=== PATIENT | female | born 1990 | race Hispanic/Latino ===

== ENCOUNTER 2020-08-04 17:16 | Emergency (ER) | payer OTHER ==
[~2020-08-04] VITALS: Ht 154.9 cm; Wt 67.7 kg
--- NOTE | 2020-08-04 21:08 | ECGEPIP ---
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
[2020-08-04 21:43] LABS: BASO # 0.1 10^3/uL (0.0-0.2); BASO % 1.2 % (0.0-1.0); EOS # 0.2 10^3/uL (0.0-0.5); EOS % 2.7 % (0.0-3.0); HEMATOCRIT 41.7 % (36.0-47.0); HEMOGLOBIN 13.3 g/dl (12.0-15.5); LYMPH # 2.3 10^3/uL (1.5-5.0); MEAN CORPUSCULAR HEMOGLOBIN 28.8 pg (27.0-33.0); MEAN CORPUSCULAR HGB CONC 31.9 g/dl (32.0-36.5); MEAN CORPUSCULAR VOLUME 90.3 fl (80.0-96.0); MONO # 0.6 10^3/uL (0.0-0.8); MONO % 6.9 % (0.0-5.0); NEUTROPHILS # 5.2 10^3/uL (1.5-8.5); NEUTROPHILS % 61.7 % (36.0-66.0); PLATELET COUNT, AUTOMATED 362 10^3/uL (150-450); RED BLOOD COUNT 4.62 10^6/uL (4.00-5.40); WHITE BLOOD COUNT 8.5 10^3/uL (4.0-10.0)
[2020-08-04 21:56] LABS: INR 0.9; PROTHROMBIN TIME 12.3 SECONDS (12.5-14.3)
[2020-08-04 21:57] LABS: PARTIAL THROMBOPLASTIN TIME 26.9 SECONDS (24.2-38.5)
[2020-08-04 21:59] LABS: D-DIMER QUANT 530.62 ng/ml (<500)
[2020-08-04 22:10] LABS: HCG, SERUM QUALITATIVE NEGATIVE (NEGATIVE)
[2020-08-04] MEDS ORDERED: ISOVUE-370 76% 100ML VIAL As Ordered ONE (22:11)
[2020-08-04 22:13] LABS: ALBUMIN 3.9 GM/DL (3.2-5.2); ALT/SGPT 31 U/L (12-78); BILIRUBIN,TOTAL 0.2 MG/DL (0.2-1.0); BLOOD UREA NITROGEN 8 MG/DL (7-18); CALCIUM LEVEL 9.7 MG/DL (8.5-10.1); CARBON DIOXIDE LEVEL 29 MEQ/L (21-32); CHLORIDE LEVEL 105 MEQ/L (98-107); CK-MB VALUE MASS < 1.0 NG/ML (<3.6); CPK CREATINE PHOSPHOKINASE 60 U/L (26-192); CREATININE FOR GFR 0.75 MG/DL (0.55-1.30); FERRITIN 13 NG/ML (8-252); GLOMERULAR FILTRATION RATE > 60.0 (>60); GLUCOSE, FASTING 85 MG/DL (70-100); LDH LACTATE DEHYDROGENASE 185 U/L (84-246); MAGNESIUM LEVEL 2.1 MG/DL (1.8-2.4); MB/CK RELATIVE INDEX 1.67 (< OR =4); SODIUM LEVEL 139 MEQ/L (136-145); TOTAL PROTEIN 8.4 GM/DL (6.4-8.2); TROPONIN I < 0.02 NG/ML (< 0.10)
--- NOTE | 2020-08-04 22:55 | REPVR ---
PROCEDURE INFORMATION: Exam: CT Angiography Chest With Contrast Exam date and time: 08/04/2020 10:25 PM Age: 30 years old Clinical indication: Shortness of breath; Chest pain; Additional info: Chest pain/sob/previous covid TECHNIQUE: Imaging protocol: Computed tomographic angiography of the chest with contrast. 3D rendering (Not supervised by radiologist): MIP and/or 3D reconstructed images were created by the technologist. Radiation optimization: All CT scans at this facility use at least one of these dose optimization techniques: automated exposure control; mA and/or kV adjustment per patient size (includes targeted exams where dose is matched to clinical indication); or iterative reconstruction. Contrast material: ISOVUE 370; Contrast volume: 75 ml; Contrast route: INTRAVENOUS (IV); COMPARISON: No relevant prior studies available. FINDINGS: Pulmonary arteries: The main pulmonary artery measures 21 mm. No pulmonary embolism is identified. Aorta: The ascending thoracic aorta measures 21 mm. Lungs: Unremarkable. No consolidation. No masses. Pleural spaces: Unremarkable. No pneumothorax. No pleural effusion. Heart: Unremarkable. No cardiomegaly. No pericardial effusion. Mediastinal space: There is minimal soft tissue in the anterior mediastinum consistent with residual thymic tissue. Lymph nodes: Unremarkable. No enlarged lymph nodes. Pancreas: Large vascular left upper quadrant mass which appears to be originating from the anterior aspect of the left kidney although is also in contact with the pancreatic tail. No significant contact with the stomach is noted. This measures approximately the 9.4 x 8.4 cm in diameter and is not seen in its entirety on any of the reformations. Bones/joints: Unremarkable. No acute fracture. Soft tissues: Unremarkable. IMPRESSION: 1. Large left vascular mass in the left upper quadrant which is most likely of left renal origin. Origination from the pancreatic body or tail is not excluded and measures 9.4 x 8.4 cm in diameter. 2. Otherwise negative CTA chest. No pulmonary embolism is identified. COMMENTS: Consistent with the [place] [place]'s Incidental Findings Committee white paper (J Am Jagdeep Radiol 2018): Any incidental renal lesion less than 1 cm or classified as too small to characterize, or any incidental cystic renal lesion characterized as simple-appearing, is likely benign. No follow-up imaging is recommended for these lesions per consensus recommendations based on imaging criteria. Electronically signed by: Mj Sheppard On 08/04/2020 22:54:35 PM
--- NOTE | 2020-08-04 22:59 | REPVR ---
PROCEDURE INFORMATION: Exam: CT Abdomen And Pelvis With Contrast Exam date and time: 08/04/2020 10:35 PM Age: 30 years old Clinical indication: Abnormal findings; Abnormal radiologic finding of the abdomen and mass, lump, or swelling; Radiologic exam and body structure: Cta chest; Kidney, left; Additional info: Mass in abd TECHNIQUE: Imaging protocol: Computed tomography of the abdomen and pelvis with contrast. Radiation optimization: All CT scans at this facility use at least one of these dose optimization techniques: automated exposure control; mA and/or kV adjustment per patient size (includes targeted exams where dose is matched to clinical indication); or iterative reconstruction. Contrast material: ISOVUE 370; Contrast volume: 100 ml; Contrast route: INTRAVENOUS (IV); COMPARISON: No relevant prior studies available. FINDINGS: Liver: Normal. No mass. Gallbladder and bile ducts: Normal. No calcified stones. No ductal dilation. Pancreas: The pancreas is within normal limits. Spleen: Normal. No splenomegaly. Adrenal glands: Normal. No mass. Kidneys and ureters: There is a large vascular mass in the left upper quadrant which is most closely associated with the low left kidney measuring 8.5 x 8.3 x 9.4 cm. There is contact with the pancreatic tail and a pancreatic origin is not excluded although considered less likely. Stomach and bowel: Unremarkable. No obstruction. No mucosal thickening. Appendix: A normal appendix is seen. Intraperitoneal space: Unremarkable. No free air. No significant fluid collection. Vasculature: Unremarkable. No abdominal aortic aneurysm. Lymph nodes: No left periaortic adenopathy is noted in the retroperitoneum. Urinary bladder: Unremarkable as visualized. Reproductive: Unremarkable as visualized. Bones/joints: Unremarkable. No acute fracture. Soft tissues: Unremarkable. IMPRESSION: 1. Large vascular mass in the left upper quadrant which is most closely associated with the left kidney and is likely of left renal origin measuring 8.5 x 8.3 x 9.4 cm. Although in contact with the pancreatic tail, pancreatic origination is thought to be less likely. Urological consult is suggested. 2. Otherwise negative CT abdomen/pelvis. COMMENTS: Consistent with the [employer]'s Incidental Findings Committee white paper (J Am Jagdeep Radiol 2018): Any incidental renal lesion less than 1 cm or classified as too small to characterize, or any incidental cystic renal lesion characterized as simple-appearing, is likely benign. No follow-up imaging is recommended for these lesions per consensus recommendations based on imaging criteria. Electronically signed by: Mj Sheppard On 08/04/2020 22:59:51 PM
--- NOTE | 2020-08-04 23:00 | REPVR ---
PROCEDURE INFORMATION: Exam: XR Chest, 1 View Exam date and time: 08/04/2020 9:20 PM Age: 30 years old Clinical indication: Chest pain; Additional info: Coronavirus workup TECHNIQUE: Imaging protocol: XR of the chest Views: 1 view. COMPARISON: CT ANGIO CHEST 08/04/2020 10:17 PM FINDINGS: Lungs: Unremarkable. No consolidation. Pleural spaces: Unremarkable. No pleural effusion. No pneumothorax. Heart/Mediastinum: Unremarkable. No cardiomegaly. Bones/joints: Unremarkable. IMPRESSION: Negative chest. Electronically signed by: Mj Sheppard On 08/04/2020 23:00:14 PM
[2020-08-05 00:26] VITALS: BP 147/97
--- NOTE | 2020-08-06 09:49 | ED PDOC ---
Post-Departure Follow-Up ft shane martin and dr thurston faxed formal report of ct abd/p for fu Hans Mckinney MD Aug 06, 2020 09:49
== END 2020-08-05 00:28 | disposition home or self-care (01) ==
LOC: M ED 17:16
DX: M94.0 Chondrocostal junction syndrome [Tietze] (principal); N28.89 Other specified disorders of kidney and ureter
CPT/HCPCS: 71045; 71275; 74177; 80053; 82550; 82553; 82728; 83605; 83615; 83735; 84484; 84703; 85025; 85379; 85384; 85610; 85730; 86140; 93005; 99284; Q9967

== ENCOUNTER 2020-09-08 09:47 | Inpatient (IN) | payer OTHER ==
[~2020-09-08] VITALS: Ht 154.9 cm; Wt 55.8 kg
[~2020-09-08 09:47] MED LIST: LIDOCAINE 1% MDV 20ML VIAL SQ PRN; LR 1,000 ML IV ONE; ceFAZolin SOD 2 GM in IV 1 EA IV ONE
[2020-09-08] MEDS ORDERED: PERCOCET 5MG/325MG TAB PO PRN ×3 (14:05→15:35)
[2020-09-08] MEDS ORDERED: MORPHINE 2 MG/ML 1ML VIAL (J2270) IV PRN (14:05)
[2020-09-08] MEDS ORDERED: ACETAMINOPHEN TAB 650MG DOSE (2X325MG) PO PRN (14:05)
[2020-09-08] MEDS ORDERED: ONDANSETRON 4MG/2ML VIAL IV PRN ×2 (14:05→15:35)
[2020-09-08] MEDS ORDERED: LIDOCAINE 1% SDV 30ML VIAL As Ordered ONE (15:27)
[2020-09-08] MEDS ORDERED: BUPIVACAINE HCL 0.5% 30 ML VIAL As Ordered ONE (15:28)
[2020-09-08] MEDS ORDERED: METOCLOPRAMIDE INJ 10MG/2ML VIAL (J2765 PER 1) IV PRN (15:35)
[2020-09-08] MEDS ORDERED: LR 1,000 ML IV SCH (15:35)
[2020-09-08] MEDS ORDERED: fentaNYL 100 MCG/2 ML INJECTION (J3010) IV PRN (15:35)
[2020-09-08] MEDS ORDERED: METOCLOPRAMIDE INJ 10MG/2ML VIAL (J2765 PER 1) As Ordered ONE (16:19)
[2020-09-08] MEDS ORDERED: ACETAMINOPHEN 1000MG 100ML IV BTL (OFIRMEV) (J0131 PER 10MG) As Ordered ONE (16:19)
[2020-09-08] MEDS ORDERED: ONDANSETRON 4MG/2ML VIAL As Ordered ONE (16:19)
[2020-09-08] MEDS ORDERED: PHENYLephrine 500MCG 5ML (100MCG/ML) SYRINGE As Ordered ONE (16:19)
[2020-09-08] MEDS ORDERED: MIDAZOLAM INJ 2MG/2ML VIAL (J2250 PER 1MG) As Ordered ONE (16:19)
[2020-09-08] MEDS ORDERED: LIDOCAINE 2% 100MG/5ML SDV (FOR ANES.) As Ordered ONE (16:19)
[2020-09-08] MEDS ORDERED: dexameTHASONE 4 MG/ML 1ML VIAL (J1100 PER 1MG) As Ordered ONE (16:19)
[2020-09-08] MEDS ORDERED: propofoL 200 MG/20 ML VIAL As Ordered ONE (16:19)
[2020-09-08] MEDS ORDERED: ROCURONIUM BROMIDE 50 MG/5 ML VIAL As Ordered ONE ×2 (16:19→19:05)
[2020-09-08] MEDS ORDERED: fentaNYL 250 MCG/5 ML INJECTION (J3010) As Ordered ONE (16:19)
[2020-09-08] MEDS ORDERED: SUGAMMADEX SODIUM 500 MG/5 ML VIAL (BRIDION) As Ordered ONE (16:51)
[2020-09-08] MEDS ORDERED: HYDROmorphone HCL 2 MG/ML 1ML VIAL (J1170) As Ordered ONE (17:11)
[2020-09-08] MEDS ORDERED: DESFLURANE 240 ML INHALANT As Ordered ONE (20:00)
[2020-09-08] MEDS ORDERED: fentaNYL 100 MCG/2 ML INJECTION (J3010) As Ordered ONE (20:34)
[2020-09-08] MEDS ORDERED: ePHEDrine SULFATE 25 MG/5 ML(5MG/ML) SYRINGE As Ordered ONE (21:08)
--- NOTE | 2020-09-08 23:13 | ROOPDOC ---
[facility] Report Of Operation Report of Operation DATE OF PROCEDURE: 09/08/20 PREPROCEDURE DIAGNOSIS: Left Renal Neoplasm. POSTPROCEDURE DIAGNOSIS: Left Renal Neoplasm. PROCEDURE: Left robotic-assisted laparoscopic radical nephrectomy (adrenal- sparing). SURGEON: Frank Mccracken MD COOPERATIVE EXTENSION AGENT: None ANESTHESIA: General OPERATIVE INDICATIONS: This is a 30-year-old female found to have a 9.4cm vascular and enhancing left renal mass concerning for renal cell carcinoma. It was recommended that she undergo the above procedure for treatment. DESCRIPTION OF PROCEDURE: The patient was brought to the operating room where general anesthesia was induced. Prophylactic antibiotics were infused. A Berrios catheter was placed under sterile conditions. Next, the patient was placed in the right lateral decubitus position. All pressure points were appropriately padded and an axillary roll was placed. We then secured the patient to the table with tape. Her abdomen was then prepped and draped in the usual sterile fashion. Next, an 8mm incision was made in line with the 11th rib along the lateral border of the rectus. Pneumoperitoneum was achieved with a Veress needle. Next, an 8mm port was placed for the camera. The camera was inserted and there were no injuries from the Veress needle or initial port placement. An 8mm port was then placed off the costal margin for the left hand robotic port. At this point, two right hand robotic ports were then placed with one between the anterior superior iliac spine and the hip and the other one just caudal to the camera port. The one just caudal to the camera port was a 12mm robotic port. Last the 15 mm assistant to the dean port was placed inferior and medial to the camera port. The robot was then docked. The large mass was seen covering the entire length of the kidney. The left colon was then mobilized medially. Gerota's fascia was very adherent to the pancreas. Attachments between the Gerota's fascia and the pancreas were then released with electrocautery. The spleen was released off of Gerota's. After mobilizing the left colon completely, we then developed a plane onto the psoas muscle off the lower pole of the kidney. The left gonadal vein was identified and was carried cephalad until the left renal vein was encountered. The gonadal vein was ligated with 2 Weck clips and transected in between. Just posterior to the vein the renal artery was identified. It was then carefully dissected and ligated with 3 Weck clips and then transected in between, leaving 2 Weck clips on the stay side. The renal vein was then carefully dissected. It was then ligated with a robotic vascular load stapler and transected. The kidney was then mobilized and on all sides. The adrenal gland was not involved by the tumor and it was the refore dissected off and spared. The ureter was then ligated with Weck clips and transected in between. The kidney was then completely free. At this point, we checked for hemostasis and hemostasis appeared excellent. Nikunj hemostatic agent was applied over the hilum. We then placed the left kidney in a large EndoCatch bag. This bag was closed and then left for future retrieval. We then undocked the robot and a Rex fascial closure device was utilized to place a 0-vicryl suture through the fascia of the 15mm port site. We then extended the incision of the 12mm right hand robotic port site to extract the specimen. We then dissected down through the musculofascial layers and extended the fascia. The muscle was bluntly spread, and we then extracted the specimen through this incision. Once that was done, we checked for hemostasis through the extraction incision and it appeared excellent. The fascia of this incision was then closed with a running #0 Vicryl suture. At this point, the abdomen was then reinsufflated. We looked at the extraction incision, and there was no active bleeding and no abdominal contents were caught within the suture. Once this was done, all the remaining ports were removed and there was no bleeding. We then tied down the #0 Vicryl suture in the 15mm port site. Once this was done, all wounds were thoroughly irrigated. The subcutaneous fat of the extraction incision was then closed with interrupted #3-0 Vicryl sutures. We then closed the skin of all incisions using subcuticular #4-0 Monocryl suture. Local anesthetic was then applied and then Dermabond was applied and marked the conclusion of the procedure. The patient was then taken out of the right lateral decubitus position, awakened from anesthesia and transported to the recovery room in stable condition. ESTIMATED BLOOD LOSS: 50mL. COMPLICATIONS: None. SPECIMENS: Left kidney. PLAN: The patient will be admitted to the hospital postoperatively for monitoring and discharged once her pain is controlled and her kidney function is stable. FRANK MCCRACKEN MD Sep 08, 2020 14:16
[2020-09-08 23:36] LABS: HEMATOCRIT 38.3 % (36.0-47.0); HEMOGLOBIN 12.4 g/dl (12.0-15.5); MEAN CORPUSCULAR HEMOGLOBIN 29.6 pg (27.0-33.0); MEAN CORPUSCULAR HGB CONC 32.4 g/dl (32.0-36.5); MEAN CORPUSCULAR VOLUME 91.4 fl (80.0-96.0); PLATELET COUNT, AUTOMATED 306 10^3/uL (150-450); RED BLOOD COUNT 4.19 10^6/uL (4.00-5.40); WHITE BLOOD COUNT 14.3 10^3/uL (4.0-10.0)
[2020-09-08 23:56] LABS: BLOOD UREA NITROGEN 12 MG/DL (7-18); CALCIUM LEVEL 8.5 MG/DL (8.5-10.1); CARBON DIOXIDE LEVEL 22 MEQ/L (21-32); CHLORIDE LEVEL 107 MEQ/L (98-107); CREATININE FOR GFR 1.09 MG/DL (0.55-1.30); GLOMERULAR FILTRATION RATE > 60.0 (>60); GLUCOSE, FASTING 156 MG/DL (70-100); POTASSIUM SERUM 4.1 MEQ/L (3.5-5.1); SODIUM LEVEL 137 MEQ/L (136-145)
[2020-09-09] VITALS (8 sets, daily range): BP systolic 135–152; BP diastolic 80–89
[2020-09-09] MEDS: ceFAZolin SOD 1 GM in D5W MINI-BAG PLUS 50 ML IV SCH ×2 (00:22→08:45)
[2020-09-09] MEDS: DOCUSATE SODIUM 100MG CAPSULE PO SCH ×2 (00:22→08:45)
[2020-09-09] MEDS: NS 1,000 ML IV SCH ×2 (00:22→03:21)
[2020-09-09 06:39] LABS: HEMATOCRIT 41.7 % (36.0-47.0); HEMOGLOBIN 13.7 g/dl (12.0-15.5); MEAN CORPUSCULAR HEMOGLOBIN 29.5 pg (27.0-33.0); MEAN CORPUSCULAR HGB CONC 32.9 g/dl (32.0-36.5); MEAN CORPUSCULAR VOLUME 89.9 fl (80.0-96.0); PLATELET COUNT, AUTOMATED 292 10^3/uL (150-450); RED BLOOD COUNT 4.64 10^6/uL (4.00-5.40); WHITE BLOOD COUNT 13.8 10^3/uL (4.0-10.0)
[2020-09-09 09:36] LABS: BLOOD UREA NITROGEN 10 MG/DL (7-18); CALCIUM LEVEL 8.6 MG/DL (8.5-10.1); CARBON DIOXIDE LEVEL 27 MEQ/L (21-32); CHLORIDE LEVEL 105 MEQ/L (98-107); CREATININE FOR GFR 1.09 MG/DL (0.55-1.30); GLOMERULAR FILTRATION RATE > 60.0 (>60); GLUCOSE, FASTING 127 MG/DL (70-100); POTASSIUM SERUM 4.2 MEQ/L (3.5-5.1); SODIUM LEVEL 138 MEQ/L (136-145)
[2020-09-09] MEDS ORDERED: DOK1CAP7 PO (13:14)
[2020-09-09] MEDS ORDERED: PERCOCET PO (13:14)
--- NOTE | 2020-09-09 13:18 | IPNPDOC ---
Subjective Review oF Systems Chief Complaint The patient is a 30-year-old female admitted with a reason for visit of Renal Mass. Events since Last Encounter No acute events o/n. Pain controlled w/ tylenol. No n/v. No f/c/ns. Passing flatus. Was a little dizzy w/ ambulating at first, but better now. Objective Physical Examination General Exam: Alert, Cooperative, No Acute Distress ABDOMEN EXAM: Soft, Tenderness (minimal), Other (incisions clean/dry/intact) Skin Exam: Nl turgor and temperature Neuro Exam: Normal Speech Psych Exam: Mental status NL, Mood NL Vital Signs/I&O Vital Signs Date Time Temp Pulse Resp B/P (MAP) Pulse Ox O2 Delivery O2 Flow Rate FiO2 09/09/20 10:00 98.4 86 20 135/81 (99) 100 Room Air I&O- Last 24 Hours up to 6 AM 09/09/20 06:00 Intake Total 3858 ml Output Total 1860 ml Balance 1998 ml Laboratory Data Labs 24H Laboratory Tests 2 09/08/20 23:21: Nucleated Red Blood Cells % (auto) 0.0, Anion Gap 8, Glomerular Filtration Rate > 60.0, Calcium Level 8.5 09/09/20 06:14: Nucleated Red Blood Cells % (auto) 0.0 09/09/20 08:49: Anion Gap 6L, Glomerular Filtration Rate > 60.0, Calcium Level 8.6 CBC/BMP Laboratory Tests 09/08/20 23:21 09/09/20 06:14 09/09/20 08:49 Assessment/Plan Date Seen The patient was seen on 09/09/20. Patient Summary This is a 30 y/o F POD1 s/p L robotic radical nephrectomy. She is doing very well. Hb stable at 13.7. Cr stable at 1.1. Good UOP. Plan/VTE VTE Prophylaxis Ordered?: Yes VTE Exclusion Mechanical Proph: N/A:VTE Prophy Ordered Plan - d/c IVF - percocet or tylenol prn pain - strict I/Os - SCDs when in bed - ambulate - regular diet - plan discharge home once patient is stable ambulating FRANK MCCRACKEN MD Sep 09, 2020 13:18
--- NOTE | 2020-09-09 20:19 | DSES ---
DISCHARGE SUMMARY DATE OF ADMISSION: 09/08/2020 DATE OF DISCHARGE: 09/09/2020 ADMISSION DIAGNOSIS: Left renal neoplasm. DISCHARGE DIAGNOSIS: Left renal neoplasm. ADMITTING PHYSICIAN: Giovanni Kirby M.D. DISCHARGE PHYSICIAN: Giovanni Kirby M.D. PROCEDURES PERFORMED: Left robotic-assisted laparoscopic radial nephrectomy on September 08, 2020. HISTORY OF PRESENT ILLNESS: This is a 30-year-old female who was found to have an enhancing approximately 9.5 cm left renal neoplasm very concerning for cancer. She underwent the above-listed procedure for surgery and was admitted postoperatively. HOSPITALIZATION COURSE: The patient was admitted to the hospital after undergoing the above-listed surgery. Her postoperative course was unremarkable. On postoperative day one, her lab work was notable for a hemoglobin level which was stable at 13.7 and a serum creatinine which was stable at 1.1. She had excellent urine output on postoperative day one. Her Berrios catheter was removed and she voided without any difficulty. She ambulated well on postoperative day one with excellent pain control, mainly with Tylenol. Her diet was advanced and she tolerated a regular diet without any nausea. Since she was doing well, she was deemed ready for discharge home in the afternoon of postoperative day one. She was discharged home with the plan to follow up in the Urology Clinic in approximately 10 days for a postoperative check and to discuss her pathology results. JORY
== END 2020-09-09 16:14 | disposition home or self-care (01) | DRG 658 ==
LOC: M OR 13:38 → M MS5PR 09-09 00:16
PROVIDERS: ADMIT Urology; ATTEND Urology
PROC: 8E0W4CZ Robotic Assisted Procedure of Trunk Region, Percutaneous Endoscopic Approach (ICD-10-PCS; 2020-09-08)
PROC: 0TT14ZZ Resection of Left Kidney, Percutaneous Endoscopic Approach (ICD-10-PCS; principal; 2020-09-08 14:45)
DX: C64.2 Malignant neoplasm of left kidney, except renal pelvis (principal)

== ENCOUNTER → 2020-09-20 | Outpatient (CLI) | payer OTHER ==
[~2020-09-20] MED LIST changes: +DOK1CAP7 PO; -LIDOCAINE 1% MDV 20ML VIAL SQ PRN; -LR 1,000 ML IV ONE; +PERCOCET PO; -ceFAZolin SOD 2 GM in IV 1 EA IV ONE
[2020-09-20 12:30] LABS: HEMATOCRIT 38.1 % (36.0-47.0); MEAN CORPUSCULAR HEMOGLOBIN 29.3 pg (27.0-33.0); MEAN CORPUSCULAR HGB CONC 31.5 g/dl (32.0-36.5); MEAN CORPUSCULAR VOLUME 93.2 fl (80.0-96.0); PLATELET COUNT, AUTOMATED 471 10^3/uL (150-450); RED BLOOD COUNT 4.09 10^6/uL (4.00-5.40); WHITE BLOOD COUNT 7.9 10^3/uL (4.0-10.0)
[2020-09-20 13:00] LABS: BLOOD UREA NITROGEN 13 MG/DL (7-18); CALCIUM LEVEL 9.5 MG/DL (8.5-10.1); CARBON DIOXIDE LEVEL 28 MEQ/L (21-32); CHLORIDE LEVEL 104 MEQ/L (98-107); CREATININE FOR GFR 0.87 MG/DL (0.55-1.30); GLOMERULAR FILTRATION RATE > 60.0 (>60); GLUCOSE, FASTING 83 MG/DL (70-100); POTASSIUM SERUM 4.2 MEQ/L (3.5-5.1); SODIUM LEVEL 140 MEQ/L (136-145)
== END ==
LOC: M WUC 10:41
PROVIDERS: ATTEND Urology
DX: C64.2 Malignant neoplasm of left kidney, except renal pelvis (principal); Z90.5 Acquired absence of kidney

== ENCOUNTER → 2021-04-03 | Outpatient (CLI) | payer OTHER ==
[~2021-04-03] MED LIST changes: +DOK1CAP4 PO; -DOK1CAP7 PO
[2021-04-03 20:55] LABS: BLOOD UREA NITROGEN 19 MG/DL (7-18); CALCIUM LEVEL 8.7 MG/DL (8.5-10.1); CARBON DIOXIDE LEVEL 26 MEQ/L (21-32); CHLORIDE LEVEL 109 MEQ/L (98-107); CREATININE FOR GFR 1.05 MG/DL (0.55-1.30); GLOMERULAR FILTRATION RATE > 60.0 (>60); GLUCOSE, FASTING 82 MG/DL (70-100); POTASSIUM SERUM 4.3 MEQ/L (3.5-5.1); SODIUM LEVEL 140 MEQ/L (136-145)
== END ==
LOC: M WUC 15:21
PROVIDERS: ATTEND Urology
DX: C64.2 Malignant neoplasm of left kidney, except renal pelvis (principal); Z90.5 Acquired absence of kidney

== ENCOUNTER → 2021-04-07 | Outpatient (CLI) | payer OTHER ==
[~2021-04-07] MED LIST changes: +ISOVUE-370 76% 100ML VIAL As Ordered ONE
--- NOTE | 2021-04-07 14:00 | REP ---
INDICATION: RENAL CELL CARCINOMA LEFT KID, STATUS POST NEPHREC COMPARISON: 08/04/2020 TECHNIQUE: Axial noncontrast and delayed images of the abdomen using 100 cc Isovue 370 intravenous contrast material with coronal and sagittal reformations. This CT examination was performed using the following dose reduction techniques: Automated exposure control, adjustment of mA and/or kv according to the patient's size, and use of iterative reconstruction technique. FINDINGS: Lung bases are clear. Visualized heart and pericardium normal. Liver, spleen, pancreas, gallbladder, bilateral adrenal glands and right kidney are normal. Patient is status post left nephrectomy. Left renal fossa appears normal and without fluid, recurrence or metastatic focus Visualized enteric system without obstruction or acute inflammatory process. No ascites. No free air. No adenopathy. No focal inflammatory stranding. Abdominal aorta without aneurysm. Musculoskeletal structures are intact and without acute osseous abnormality. IMPRESSION: 1. Prior left nephrectomy for renal cell carcinoma. 2. No evidence for acute abdominal pathology, recurrence or metastatic disease. <Electronically signed by Prasanth Regalado > 04/07/21 [id number]
== END ==
LOC: M RAD 12:33
PROVIDERS: ATTEND Urology
DX: C64.2 Malignant neoplasm of left kidney, except renal pelvis (principal); Z90.5 Acquired absence of kidney
CPT/HCPCS: 74160; Q9967

== ENCOUNTER → 2021-05-08 | Outpatient (CLI) | payer OTHER ==
[~2021-05-08] MED LIST changes: -ISOVUE-370 76% 100ML VIAL As Ordered ONE
--- NOTE | 2021-05-08 14:57 | REP ---
INDICATION: MALIGNANT NEOPLASM OF LEFT KIDNEY, EXCEPT RENAL PELVIS. COMPARISON: 08/24/2020 FINDINGS: The superior mediastinal structures are midline. The cardiac silhouette is unremarkable in size, shape, and position. The diaphragmatic surfaces of the lungs are regular, and the costophrenic angles are clear. The pulmonary au are clear. The imaged osseous structures are intact. IMPRESSION: There is no acute cardiopulmonary disease. <Electronically signed by Leo Cotter > 05/08/21 [id number]
== END ==
LOC: M PLAIMG 12:54
PROVIDERS: ATTEND Urology
DX: C64.2 Malignant neoplasm of left kidney, except renal pelvis (principal); Z90.5 Acquired absence of kidney

== ENCOUNTER → 2022-01-08 | Outpatient (REF) | payer OTHER | LOC: M LAB REF 19:47 | PROVIDERS: ATTEND Physician Assistant | DX: L02.811 Cutaneous abscess of head [any part, except face] (principal) ==

== ENCOUNTER → 2022-05-11 | Outpatient (CLI) | payer OTHER ==
[2022-05-11 17:26] LABS: BLOOD UREA NITROGEN 14 MG/DL (7-18); CALCIUM LEVEL 8.9 MG/DL (8.5-10.1); CARBON DIOXIDE LEVEL 29 MEQ/L (21-32); CHLORIDE LEVEL 103 MEQ/L (98-107); CREATININE FOR GFR 0.91 MG/DL (0.55-1.30); GLOMERULAR FILTRATION RATE > 60.0 (>60); GLUCOSE, FASTING 83 MG/DL (70-100); POTASSIUM SERUM 4.2 MEQ/L (3.5-5.1); SODIUM LEVEL 136 MEQ/L (136-145)
== END ==
LOC: M WUC 11:45
PROVIDERS: ATTEND Urology
DX: C64.2 Malignant neoplasm of left kidney, except renal pelvis (principal); Z90.5 Acquired absence of kidney

== ENCOUNTER → 2022-05-11 | Outpatient (CLI) | payer OTHER ==
[~2022-05-11] MED LIST changes: +ISOVUE-370 76% 100ML VIAL As Ordered ONE
== END ==
LOC: M RAD 10:36
PROVIDERS: ATTEND Urology
DX: C64.2 Malignant neoplasm of left kidney, except renal pelvis (principal); Z90.5 Acquired absence of kidney